=== PATIENT | male | born 1985 | race Caucasian/White ===

== ENCOUNTER 2019-10-14 15:25 | Emergency (ER) | payer MEDICAID ==
[2019-10-14] MEDS ORDERED: KETOROLAC 30 MG/ML VIAL ONE (18:20)
== END 2019-10-14 19:54 | disposition home or self-care (01) ==
LOC: MED 15:25
DX: S83.91XA Sprain of unspecified site of right knee, initial encounter (principal); I10 Essential (primary) hypertension; Z94.0 Kidney transplant status; X58.XXXA Exposure to other specified factors, initial encounter; Y92.89 Other specified places as the place of occurrence of the external cause; Y93.89 Activity, other specified; Y99.8 Other external cause status
CPT/HCPCS: 73562; 99283; J1885

== ENCOUNTER 2019-12-29 11:06 | Emergency (ER) | payer MEDICAID ==
[~2019-12-29] VITALS: Ht 175.3 cm; Wt 89.6 kg
[2019-12-29 11:18] VITALS: BP 145/104
--- NOTE | 2019-12-29 11:21 | NUR ---
AMBULATES TO BED 9
--- NOTE | 2019-12-29 11:29 | NUR ---
Xray at bedside
--- NOTE | 2019-12-29 11:30 | NUR ---
BIB SELF C/O LT SIDED CP 710 RADIATING THE LT ARM AND SOB SINCE LAST NIGHT, ANXIETY THIS MORNING. PATIENT STATES PAIN OF 7/10 AT THIS TIME; VSS; PATIENT POSITIONED FOR COMFORT; HOB ELEVATED; BEDRAILS UP X1; BED DOWN. ER MD MADE AWARE OF PT STATUS.
[2019-12-29 12:12] LABS: BASOPHILS % (AUTO) 0.7 % (0.0-2.0); EOSINOPHILS # (AUTO) 0.1 K/uL (0-0.4); LYMPHOCYTES # (AUTO) 1.2 K/uL (2.0-11.5); LYMPHOCYTES % (AUTO) 34.1 % (20.5-51.1); MEAN CORPUSCULAR HEMOGLOBIN 26 pg (27-31); MEAN CORPUSCULAR HGB CONC 33 g/dL (33-37); MEAN CORPUSCULAR VOLUME 78.9 fL (80-94); MONOCYTES # (AUTO) 0.3 K/uL (0.8-1.0); MONOCYTES % (AUTO) 8.3 % (1.7-9.3); NEUTROPHILS # (AUTO) 1.9 K/uL (1.8-7.7); NEUTROPHILS % (AUTO) 54.9 % (42.2-75.2); PLATELET COUNT (AUTO) 144 K/uL (140-450); RED BLOOD CELL COUNT(AUTO) 5.71 MIL/uL (4.20-6.10); RED CELL DISTRIBUTION WIDTH 13.5 % (11.6-13.7); WHITE BLOOD COUNT (AUTO) 3.4 K/uL (4.8-10.8)
[2019-12-29 12:27] LABS: ALBUMIN 3.3 g/dL (3.4-5.0); ANION GAP 15.7 (8-16); CARBON DIOXIDE 21.7 mmol/L (21-32); CREATININE 1.8 mg/dL (0.6-1.3); POTASSIUM 3.4 mmol/L (3.5-5.1); TOTAL BILIRUBIN 0.5 mg/dL (0.0-1.0)
--- NOTE | 2019-12-29 12:30 | NUR ---
PT IS RESTING IN THE BED W/ VSS.
--- NOTE | 2019-12-29 13:32 | NUR ---
PT STATES HAVING 4/10 PRESSURE-LIKE CP AT THIS TIME W/O ANY RADIATION. DENIES N/V.
[2019-12-29 14:10] VITALS: BP 146/87
--- NOTE | 2019-12-29 14:10 | NUR ---
Patient discharged with v/s stable. Written and verbal after care instructions given and explained REGARDING NONSPECIFIC CHEST PAIN. Patient alert, oriented and verbalized understanding of instructions. Ambulatory with steady gait. All questions addressed prior to discharge. ID band removed. Patient advised to follow up with PMD. Rx of ATARAX, NORCO given. Patient educated on indication of medication including possible reaction and side effects. Opportunity to ask questions provided and answered. PT INSTRUCTED TO NOT DRIVE AFTER TAKING NORCO
== END 2019-12-29 14:10 | disposition home or self-care (01) ==
LOC: MED 11:06
DX: R07.9 Chest pain, unspecified (principal); Z87.448 Personal history of other diseases of urinary system; Z88.6 Allergy status to analgesic agent
CPT/HCPCS: 36415; 71045; 80053; 84484; 85025; 93005; 99285; Q0092

== ENCOUNTER 2020-01-24 12:25 | Emergency (ER) | payer MEDICAID ==
[~2020-01-24] VITALS: Ht 175.3 cm; Wt 88.9 kg
[2020-01-24 12:39] VITALS: BP 151/103
--- NOTE | 2020-01-24 12:44 | NUR ---
Patient ambulated to bed 11. RN evaluating patient at bedside.
--- NOTE | 2020-01-24 12:52 | NUR ---
computer system technician at bedside.
[2020-01-24] MEDS ORDERED: MORPHINE SULFATE 4 MG/ML SYR IVP ONE (12:55)
--- NOTE | 2020-01-24 12:59 | NUR ---
US tech at bedside for exam.
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
[2020-01-24 13:31] LABS: BASOPHILS % (AUTO) 0.8 % (0.0-2.0); EOSINOPHILS # (AUTO) 0.2 K/uL (0-0.4); EOSINOPHILS % (AUTO) 4.3 % (0.0-4.0); HEMATOCRIT 44.2 % (36-52); HEMOGLOBIN 14.5 g/dL (12.0-18.0); LYMPHOCYTES # (AUTO) 0.7 K/uL (2.0-11.5); LYMPHOCYTES % (AUTO) 16.6 % (20.5-51.1); MEAN CORPUSCULAR HEMOGLOBIN 26 pg (27-31); MEAN CORPUSCULAR HGB CONC 33 g/dL (33-37); MEAN CORPUSCULAR VOLUME 80.5 fL (80-94); MONOCYTES # (AUTO) 0.5 K/uL (0.8-1.0); MONOCYTES % (AUTO) 10.9 % (1.7-9.3); NEUTROPHILS # (AUTO) 2.9 K/uL (1.8-7.7); NEUTROPHILS % (AUTO) 67.4 % (42.2-75.2); PLATELET COUNT (AUTO) 180 K/uL (140-450); RED BLOOD CELL COUNT(AUTO) 5.49 MIL/uL (4.20-6.10); RED CELL DISTRIBUTION WIDTH 13.9 % (11.6-13.7); WHITE BLOOD COUNT (AUTO) 4.3 K/uL (4.8-10.8)
--- NOTE | 2020-01-24 13:54 | NUR ---
Patient in bed laying comfortably. pain medication administered. no needs at this time. bed at lowest position, bed rails x2 and locked.
[2020-01-24] MEDS ORDERED: CEPHALEXIN 500 MG CAP PO ONE (14:00)
[2020-01-24] MEDS ORDERED: SULFAMETH/TRIMETH DS 800/160MG 1 TAB PO ONE (14:00)
[2020-01-24 14:19] VITALS: BP 135/93
[2020-01-24 14:20] LABS: ANION GAP 14.2 (8-16); CARBON DIOXIDE 22.6 mmol/L (21-32); CREATININE 1.9 mg/dL (0.6-1.3); POTASSIUM 3.8 mmol/L (3.5-5.1)
[2020-01-24 14:27] LABS: ALBUMIN 3.2 g/dL (3.4-5.0); TOTAL BILIRUBIN 0.6 mg/dL (0.0-1.0); URIC ACID 6.7 mg/dL (2.6-7.2)
== END 2020-01-24 12:52 | disposition home or self-care (01) ==
LOC: MED 12:25
DX: L03.114 Cellulitis of left upper limb (principal); Z91.09 Other allergy status, other than to drugs and biological substances
CPT/HCPCS: 36415; 73110; 80053; 84550; 85025; 93971; 96374; 99284; J2270; Q0092

== ENCOUNTER 2020-04-20 23:40 | Emergency (ER) | payer MEDICAID ==
[~2020-04-20] VITALS: Ht 170.2 cm; Wt 93.4 kg
[2020-04-20 23:50] VITALS: BP 162/110
--- NOTE | 2020-04-20 23:57 | NUR ---
PT AMBULATED TO BE 04 WITH STEADY GAIT.
[2020-04-21] MEDS ORDERED: MORPHINE SULFATE 2 MG/ML SYR IM ONE ×2 (00:10→01:25)
--- NOTE | 2020-04-21 00:28 | NUR ---
PT TAKEN TO CT VIA W/C
--- NOTE | 2020-04-21 01:20 | NUR ---
PT CONTIUNES TO COMPLAIN OF PAIN 08/18, MD FONTAINE AWARE
--- NOTE | 2020-04-21 01:28 | NUR ---
PT AMBULATED TO RESTROOM TO GIVE URINE SPECIMEN.
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
[2020-04-21 01:37] LABS: APPEARANCE,URINE CLEAR (CLEAR); BILIRUBIN,URINE NEGATIVE (NEGATIVE); BLOOD, URINE NEGATIVE (NEGATIVE); COLOR,URINE YELLOW (YELLOW); LEUKOCYTE ESTERASE ,URINE NEGATIVE (NEGATIVE); NITRITE, URINE NEGATIVE (NEGATIVE); PH,URINE 5.5 (5.0-9.0); UGLUCOSE NEGATIVE (NEGATIVE)
[2020-04-21 01:48] LABS: HYALINE CASTS, URINE 0-2 /LPF (None Seen); RBC,URINE 0-5 /HPF (0-5); WBC,URINE 0-5 /HPF (0-5)
--- NOTE | 2020-04-21 02:22 | NUR ---
Patient discharged with v/s stable. Written and verbal after care instructions given and explained. Patient alert, oriented and verbalized understanding of instructions. Ambulatory with steady gait. All questions addressed prior to discharge. ID band removed. Patient advised to follow up with PMD. Rx of NORCO, NARCAN given. Patient educated on indication of medication including possible reaction and side effects. Opportunity to ask questions provided and answered.
[2020-04-21 02:28] VITALS: BP 144/107
== END 2020-04-21 02:22 | disposition home or self-care (01) ==
LOC: MED 23:40
DX: S16.1XXA Strain of muscle, fascia and tendon at neck level, initial encounter (principal); I10 Essential (primary) hypertension; N28.9 Disorder of kidney and ureter, unspecified; Z88.6 Allergy status to analgesic agent; Z94.0 Kidney transplant status; V89.2XXA Person injured in unspecified motor-vehicle accident, traffic, initial encounter; Y93.89 Activity, other specified; Y92.89 Other specified places as the place of occurrence of the external cause; Y99.8 Other external cause status
CPT/HCPCS: 72040; 74176; 81001; 96372; 99285; J2270; 99284

== ENCOUNTER 2021-10-19 11:54 | Emergency (ER) | payer MEDICAID ==
[~2021-10-19] VITALS: Ht 172.7 cm; Wt 96.6 kg
[2021-10-19 12:03] VITALS: BP 159/104
--- NOTE | 2021-10-19 12:08 | NUR ---
PT TO ER BED 12, ER MD HIGHTOWER PT IN TRIAGE
[2021-10-19] MEDS ORDERED: ALLO100T21 PO (12:15)
[2021-10-19] MEDS ORDERED: TACR1CAP17 PO ×2 (12:15)
[2021-10-19] MEDS ORDERED: CEL250 PO (12:15)
--- NOTE | 2021-10-19 12:20 | NUR ---
Blood sample and cultures handed to CPT Corinne at ER bedside
[2021-10-19] MEDS ORDERED: MORPHINE SULFATE 4 MG/ML SYR IM ONE (12:40)
--- NOTE | 2021-10-19 12:40 | NUR ---
SPECIMEN FROM R KNEE, COLLECTED DURING PROCEDURE, GIVEN TO PAVER LAYER
[2021-10-19] MEDS ORDERED: LIDOCAINE 2% 1000 MG/50 ML VIAL INJ ONE (12:45)
[2021-10-19 12:59] LABS: BASOPHILS % (AUTO) 0.4 % (0.0-2.0); EOSINOPHILS # (AUTO) 0.1 K/uL (0-0.4); EOSINOPHILS % (AUTO) 1.7 % (0.0-4.0); HEMATOCRIT 40.6 % (36-52); HEMOGLOBIN 13.8 g/dL (12.0-18.0); LYMPHOCYTES # (AUTO) 1.1 K/uL (2.0-11.5); LYMPHOCYTES % (AUTO) 25.2 % (20.5-51.1); MEAN CORPUSCULAR HEMOGLOBIN 27 pg (27-31); MEAN CORPUSCULAR HGB CONC 34 g/dL (33-37); MEAN CORPUSCULAR VOLUME 78.3 fL (80-94); MONOCYTES # (AUTO) 0.4 K/uL (0.8-1.0); MONOCYTES % (AUTO) 8.9 % (1.7-9.3); NEUTROPHILS # (AUTO) 2.8 K/uL (1.8-7.7); NEUTROPHILS % (AUTO) 63.8 % (42.2-75.2); PLATELET COUNT (AUTO) 206 K/uL (140-450); RED BLOOD CELL COUNT(AUTO) 5.18 MIL/uL (4.20-6.10); RED CELL DISTRIBUTION WIDTH 14.7 % (11.6-13.7); WHITE BLOOD COUNT (AUTO) 4.3 K/uL (4.8-10.8)
[2021-10-19 13:27] LABS: ALBUMIN 3.4 g/dL (3.4-5.0); ANION GAP 17.8 (8-16); CARBON DIOXIDE 21.9 mmol/L (21-32); CREATININE 1.9 mg/dL (0.6-1.3); POTASSIUM 3.7 mmol/L (3.5-5.1); TOTAL BILIRUBIN 0.4 mg/dL (0.0-1.0)
--- NOTE | 2021-10-19 13:30 | NUR ---
GAVE REPORT TO MARCELLO PURI AND MARCELLO CH. TRANSFER OF CARE AT THIS TIME.
[2021-10-19] MEDS ORDERED: PRED20TA5 PO (13:46)
[2021-10-19] MEDS ORDERED: ACET-8386 PO (13:46)
[2021-10-19] MEDS ORDERED: NACL 0.9% 1,000 ML IV ONE (13:55)
[2021-10-19] MEDS ORDERED: MORPHINE SULFATE 4 MG/ML SYR IVP ONE (14:25)
[2021-10-19 15:45] LABS: APPEARANCE,SPUN,BODY FLUID HAZY (CLEAR); APPEARANCE,UNSPUN,BODY FLUID CLOUDY (CLEAR); COLOR,BODY FLUID YELLOW (LT YELLOW); RBC, BODY FLUID 432 /cu. mm.; SPECIMENTYPE,BODY FLUID SYNOVIAL; TOTAL VOLUME,BODY FLUID 30 mL; WBC, BODY FLUID 414 /cu. mm.
[2021-10-19 15:46] LABS: POLYNUCLEAR, BODY FLUID 55 %
[2021-10-19 15:52] LABS: GLUCOSE,BODY FLUID 4 mg/dL
[2021-10-19] MEDS ORDERED: HYDROcodone/APAP 7.5/325 MG 1 TAB PO ONE (16:00)
[2021-10-19 16:30] VITALS: BP 147/96
--- NOTE | 2021-10-19 16:50 | NUR ---
Patient discharged with v/s stable. Written and verbal after care instructions given and explained. Patient alert, oriented and verbalized understanding of instructions. Ambulatory with steady gait. All questions addressed prior to discharge. ID band removed. Patient advised to follow up with PMD. Rx of Batchelor, Prednisone given. Patient educated on indication of medication including possible reaction and side effects. Opportunity to ask questions provided and answered.
[2021-10-22 06:07] LABS: TACROLIMUS 2.9 ng/mL (2.0-20.0)
== END 2021-10-19 16:50 | disposition home or self-care (01) ==
LOC: MED 11:54
DX: M10.061 Idiopathic gout, right knee (principal); M25.461 Effusion, right knee; I10 Essential (primary) hypertension; Z88.6 Allergy status to analgesic agent; Z79.899 Other long term (current) drug therapy; Z98.890 Other specified postprocedural states
CPT/HCPCS: 36415; 80053; 80197; 82945; 83605; 84157; 84550; 85025; 85651; 86140; 87040; 87070; 87205; 89051; 96361; 96374; 99283; J2001; J2270; J7030

== ENCOUNTER 2022-01-07 08:36 | Emergency (ER) | payer MEDICAID ==
[~2022-01-07] VITALS: Ht 175.3 cm; Wt 98.4 kg
[~2022-01-07 08:36] MED LIST: ACET-8386 PO; ALLO100T21 PO; CEL250 PO; PRED20TA5 PO; TACR1CAP17 PO
[2022-01-07 08:45] VITALS: BP 144/94
--- NOTE | 2022-01-07 08:45 | NUR ---
36 y/o Male BIB self for c/o 08/18 sharp right knee pain x yesterday. Right knee appears swollen and tender to touch. Pt states he has a PmHx of gout and has had previous visits for same pain. Pt ambulates with an impaired steady gait. PmHx: Gout, HTN, Kidney disease(2011 kidney transplant) Allergies: Ibuprofen Home meds: Lisinopril, anti rejection(unknown)
--- NOTE | 2022-01-07 08:52 | NUR ---
Pt ambulated to room 12 at this time
[2022-01-07] MEDS ORDERED: ACET-8386 PO (09:09)
[2022-01-07 09:16] VITALS: BP 144/94
--- NOTE | 2022-01-07 09:16 | NUR ---
Patient discharged with v/s stable. Written and verbal after care instructions given and explained with teachback . Patient verbalized understanding. Ambulatory with steady gait. All questions addressed prior to discharge. Advised to follow up with PMD.
== END 2022-01-07 09:16 | disposition home or self-care (01) ==
LOC: MED 08:36
DX: M10.9 Gout, unspecified (principal); I10 Essential (primary) hypertension; Z88.6 Allergy status to analgesic agent; Z79.899 Other long term (current) drug therapy; Z87.448 Personal history of other diseases of urinary system
CPT/HCPCS: 99283

== ENCOUNTER 2022-07-15 11:56 | Emergency (ER) | payer MEDICAID ==
[~2022-07-15] VITALS: Ht 175.3 cm; Wt 103.9 kg
[2022-07-15 12:23] VITALS: BP 128/85
--- NOTE | 2022-07-15 13:17 | NUR ---
PT AMBULATED TO BED 10.
--- NOTE | 2022-07-15 13:20 | NUR ---
36 Y/O Male presents with non-radiating pressure like CP x 3 days. +N/V, denies any blood at this time. Abd soft and non-tender. AOX4, able to make needs known. Resp even and unlabored. PmHx: kidney transplant 2010 Allergies : Ibuprofen
[2022-07-15 13:22] LABS: BASOPHILS % (AUTO) 0.4 % (0.0-2.0); EOSINOPHILS % (AUTO) 0.5 % (0.0-4.0); HEMATOCRIT 38.5 % (36-52); LYMPHOCYTES # (AUTO) 1.1 K/uL (2.0-11.5); LYMPHOCYTES % (AUTO) 18.1 % (20.5-51.1); MEAN CORPUSCULAR HEMOGLOBIN 28 pg (27-31); MEAN CORPUSCULAR HGB CONC 34 g/dL (33-37); MEAN CORPUSCULAR VOLUME 82.2 fL (80-94); MONOCYTES # (AUTO) 0.5 K/uL (0.8-1.0); MONOCYTES % (AUTO) 8.8 % (1.7-9.3); NEUTROPHILS # (AUTO) 4.3 K/uL (1.8-7.7); NEUTROPHILS % (AUTO) 72.2 % (42.2-75.2); PLATELET COUNT (AUTO) 164 K/uL (140-450); RED BLOOD CELL COUNT(AUTO) 4.68 MIL/uL (4.20-6.10); RED CELL DISTRIBUTION WIDTH 14.2 % (11.6-13.7); WHITE BLOOD COUNT (AUTO) 5.9 K/uL (4.8-10.8)
[2022-07-15 13:39] LABS: ALBUMIN 3.2 g/dL (3.4-5.0); ANION GAP 16.1 (8-16); CARBON DIOXIDE 21.8 mmol/L (21-32); CREATININE 2.3 mg/dL (0.6-1.3); POTASSIUM 3.9 mmol/L (3.5-5.1); TOTAL BILIRUBIN 0.8 mg/dL (0.0-1.0)
--- NOTE | 2022-07-15 14:10 | NUR ---
Patient appears to be resting comfortably in bed. Vital Signs within normal limits. Respirations even and unlabored.
[2022-07-15] MEDS ORDERED: ASPIRIN 325 MG TAB PO ONE (14:25)
[2022-07-15] MEDS ORDERED: MORPHINE SULFATE 4 MG/ML SYR IVP ONE ×2 (15:45→16:55)
--- NOTE | 2022-07-15 15:48 | NUR ---
CHANDRA SENT TO LAB
[2022-07-15] MEDS ORDERED: HEPARIN PER PHARMACY MC ONE (16:00)
[2022-07-15] MEDS ORDERED: hePARIN / DEXT 5% PREMIX 250 ML IV ONE (16:00)
--- NOTE | 2022-07-15 16:10 | NUR ---
Spoke to Dr Mclain with order to hold administration of Heparin drip at this time.
[2022-07-15 16:49] VITALS: BP 139/87
[2022-07-15] MEDS ORDERED: MORPHINE SULFATE 4 MG/ML SYR ONE (16:56)
--- NOTE | 2022-07-15 17:03 | NUR ---
Patient to be transferred to [facility]. Is being transferred due to higher level of care. Receiving facility has accepting physician and available space. ER physician has signed transfer form. Patient or responsible green party has agreed to transfer and signed form. Patient belongings inventoried and will be sent with patient. Copy of nursing notes, lab reports, EKG, Physicians Orders and X-rays to be sent with patient. Report called to Cal RIVERO at receiving facility. [facility] ambulance service taken pt in stable condition, no acute distress at this time.
== END 2022-07-15 17:03 | disposition short-term general hospital (02) ==
LOC: MED 11:56
DX: I21.4 Non-ST elevation (NSTEMI) myocardial infarction (principal); Z20.822 Contact with and (suspected) exposure to COVID-19; R77.8 Other specified abnormalities of plasma proteins; I10 Essential (primary) hypertension; Z79.899 Other long term (current) drug therapy; Z88.6 Allergy status to analgesic agent; Z98.890 Other specified postprocedural states
CPT/HCPCS: 36415; 71045; 80053; 83880; 84484; 85025; 85730; 87426; 93005; 96374; 96375; 96376; 99291; J1644; J2270

== ENCOUNTER 2022-09-27 11:45 | Emergency (ER) | payer MEDICAID ==
[~2022-09-27] VITALS: Ht 175.3 cm; Wt 103.4 kg
[2022-09-27 12:08] VITALS: BP 125/81
[2022-09-27] MEDS ORDERED: ACETAMINOPHEN EXTRA STRENGTH 500 MG TAB PO ONE (12:15)
[2022-09-27] MEDS ORDERED: ACETAMINOPHEN EXTRA STRENGTH 500 MG TAB ONE (12:16)
[2022-09-27] MEDS ORDERED: OSEL30CA1 PO (13:24)
[2022-09-27] MEDS ORDERED: ACET-10509 PO (13:25)
--- NOTE | 2022-09-27 13:50 | NUR ---
Patient discharged with v/s stable. Written and verbal after care instructions ABOUT INFLUENZA given and explained. Patient alert, oriented and verbalized understanding of instructions. Ambulatory with steady gait. All questions addressed prior to discharge. ID band removed. Patient advised to follow up with PMD. Rx of TYLENOL EXTRA STRENGTH AND TAMIFLU given. Patient educated on indication of medication including possible reaction and side effects. Opportunity to ask questions provided and answered.
== END 2022-09-27 13:50 | disposition home or self-care (01) ==
LOC: MED 11:45
DX: J10.1 Influenza due to other identified influenza virus with other respiratory manifestations (principal); I10 Essential (primary) hypertension; Z79.899 Other long term (current) drug therapy; Z98.890 Other specified postprocedural states; Z88.6 Allergy status to analgesic agent
CPT/HCPCS: 99283

== ENCOUNTER 2022-12-25 00:38 | Emergency (ER) | payer MEDICAID ==
[~2022-12-25] VITALS: Ht 175.3 cm; Wt 109.3 kg
[~2022-12-25 00:38] MED LIST changes: +ACET-10509 PO; -ACET-8386 PO; +ACET-8905 PO; +OSEL30CA1 PO
[2022-12-25 00:45] VITALS: BP 150/104
[2022-12-25] MEDS ORDERED: ASPIRIN 325 MG TAB PO ONE (00:50)
--- NOTE | 2022-12-25 00:55 | NUR ---
Pt came is with chest pain pressure 10/10, neausea and vomiting, SOB. Numbness and tingling. Hx: HTN Sx Hx: Kidney transplant, [place]
--- NOTE | 2022-12-25 00:56 | NUR ---
awake and alert oriented x4. Pt is able to answer questions.
[2022-12-25 01:05] LABS: BASOPHILS % (AUTO) 0.2 % (0.0-2.0); EOSINOPHILS % (AUTO) 0.1 % (0.0-4.0); HEMATOCRIT 41.4 % (36-52); HEMOGLOBIN 13.9 g/dL (12.0-18.0); LYMPHOCYTES # (AUTO) 0.6 K/uL (2.0-11.5); LYMPHOCYTES % (AUTO) 8.6 % (20.5-51.1); MEAN CORPUSCULAR HEMOGLOBIN 27 pg (27-31); MEAN CORPUSCULAR HGB CONC 34 g/dL (33-37); MEAN CORPUSCULAR VOLUME 80.3 fL (80-94); MONOCYTES # (AUTO) 0.1 K/uL (0.8-1.0); MONOCYTES % (AUTO) 1.5 % (1.7-9.3); NEUTROPHILS # (AUTO) 6.6 K/uL (1.8-7.7); NEUTROPHILS % (AUTO) 89.6 % (42.2-75.2); PLATELET COUNT (AUTO) 212 K/uL (140-450); RED BLOOD CELL COUNT(AUTO) 5.16 MIL/uL (4.20-6.10); RED CELL DISTRIBUTION WIDTH 14.9 % (11.6-13.7); WHITE BLOOD COUNT (AUTO) 7.4 K/uL (4.8-10.8)
[2022-12-25 01:45] LABS: CHLORIDE 101 mmol/L (98-107); POTASSIUM 4.5 mmol/L (3.5-5.1); SODIUM SERUM 135 mmol/L (136-145)
[2022-12-25 01:46] LABS: CREATININE 2.2 mg/dL (0.6-1.3); GFR ARICAN-AMERICAN 44 mL/min (>90); GLUCOSE 257 mg/dL (74-106); UREA NITROGEN, BLOOD 18 mg/dL (7-18)
[2022-12-25 01:47] LABS: ALBUMIN 4.2 g/dL (3.4-5.0)
[2022-12-25 01:52] LABS: BARBITURATE, URINE NEGATIVE ng/ml (NEG <=200); BENZODIAZEPINE, URINE NEGATIVE ng/mL (NEG <=200)
[2022-12-25 01:53] LABS: CANNABINOID, URINE NEGATIVE ng/mL (NEG <=50); COCAINE, URINE NEGATIVE ng/mL (NEG <=300); OPIATE, URINE NEGATIVE ng/mL (NEG <=2000); PHENCYCLIDINE SCREEN,URINE NEGATIVE ng/mL (NEG <=25)
[2022-12-25 01:59] LABS: ASPARTATE AMINOTRANSFERASE 11 U/L (15-37); CARBON DIOXIDE 19.5 mmol/L (21-32); LIPASE 118 U/L (73-393); TOTAL BILIRUBIN 0.5 mg/dL (0.0-1.0)
[2022-12-25] MEDS ORDERED: ASPI-1822 PO (02:21)
[2022-12-25] MEDS ORDERED: MYCO500T PO (02:21)
[2022-12-25] MEDS ORDERED: PRED5TAB7 PO (02:21)
[2022-12-25] MEDS ORDERED: METO25TE2 PO (02:21)
[2022-12-25] MEDS ORDERED: ATOR40TA PO (02:21)
[2022-12-25] MEDS ORDERED: CLOP75TA55 PO (02:21)
[2022-12-25] MEDS ORDERED: diazePAM 5 MG TAB PO ONE (02:40)
[2022-12-25 05:35] VITALS: BP 150/105
--- NOTE | 2022-12-25 05:38 | NUR ---
Patient does not wish to proceed with medical care recommended by Dr. Dunn. Patient given information related to possible complications, up to and including , which could occur as a result of leaving hospital at this time. Patient verbalizes understanding of risks involved leaving against medical advice. Patient has signed AMA form. Pt left with his belongings.
[2022-12-26] MEDS ORDERED: TACR1CAP10 PO (17:18)
[2022-12-26] MEDS ORDERED: PRED5TAB8 PO (17:18)
[2022-12-26] MEDS ORDERED: ATOR40TA40 PO (17:18)
[2022-12-26] MEDS ORDERED: ASPI-1856 PO (17:18)
== END 2022-12-25 05:25 | disposition left against medical advice (07) ==
LOC: MED 00:38
DX: R94.31 Abnormal electrocardiogram [ECG] [EKG] (principal); I10 Essential (primary) hypertension; N18.9 Chronic kidney disease, unspecified; Z88.5 Allergy status to narcotic agent; Z79.899 Other long term (current) drug therapy
CPT/HCPCS: 36415; 71045; 80053; 80305; 83690; 84484; 85025; 93005; 99285; Q0092

== ENCOUNTER 2022-12-26 13:41 | Inpatient (IN) | payer MEDICAID ==
[~2022-12-26] VITALS: Ht 175.3 cm; Wt 107.0 kg
[~2022-12-26 13:41] MED LIST changes: -ACET-10509 PO; -ACET-8905 PO; -ALLO100T21 PO; +ASPI-1822 PO; +ATOR40TA PO; -CEL250 PO; +CLOP75TA55 PO; +METO25TE2 PO; +MYCO500T PO; -OSEL30CA1 PO; -PRED20TA5 PO; +PRED5TAB7 PO
[2022-12-26 13:47] VITALS: BP 127/83
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
[2022-12-26] MEDS ORDERED: ASPIRIN 325 MG TAB PO ONE (14:25)
[2022-12-26 15:34] LABS: BASOPHILS % (AUTO) 0.5 % (0.0-2.0); EOSINOPHILS % (AUTO) 0.5 % (0.0-4.0); HEMATOCRIT 41.6 % (36-52); HEMOGLOBIN 13.8 g/dL (12.0-18.0); LYMPHOCYTES # (AUTO) 2.2 K/uL (2.0-11.5); LYMPHOCYTES % (AUTO) 35.1 % (20.5-51.1); MEAN CORPUSCULAR HEMOGLOBIN 27 pg (27-31); MEAN CORPUSCULAR HGB CONC 33 g/dL (33-37); MEAN CORPUSCULAR VOLUME 81.5 fL (80-94); MONOCYTES # (AUTO) 0.4 K/uL (0.8-1.0); NEUTROPHILS # (AUTO) 3.5 K/uL (1.8-7.7); NEUTROPHILS % (AUTO) 56.9 % (42.2-75.2); PLATELET COUNT (AUTO) 195 K/uL (140-450); RED CELL DISTRIBUTION WIDTH 15.1 % (11.6-13.7); WHITE BLOOD COUNT (AUTO) 6.2 K/uL (4.8-10.8)
[2022-12-26 16:21] LABS: PROTHROMBIN TIME 10.2 secs (10.8-13.4)
--- NOTE | 2022-12-26 17:11 | NUR ---
PT AMB TO BED 8
[2022-12-26] MEDS ORDERED: PRED5TAB8 PO (17:18)
[2022-12-26] MEDS ORDERED: TACR1CAP10 PO (17:18)
[2022-12-26] MEDS ORDERED: ASPI-1856 PO (17:18)
[2022-12-26] MEDS ORDERED: ATOR40TA40 PO (17:18)
[2022-12-26 17:51] VITALS: BP 132/87
[2022-12-26 17:55] LABS: ANION GAP 17.9 (8-16); CARBON DIOXIDE 21.6 mmol/L (21-32); CREATININE 2.3 mg/dL (0.6-1.3); POTASSIUM 3.5 mmol/L (3.5-5.1)
[2022-12-26 18:08] LABS: ALBUMIN 3.7 g/dL (3.4-5.0); TOTAL BILIRUBIN 0.3 mg/dL (0.0-1.0)
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
--- NOTE | 2022-12-26 18:38 | NUR ---
LAB AT BEDSIDE
--- NOTE | 2022-12-26 19:21 | NUR ---
REPORT GIVEN TO CARLOS SAN. TRANSFER OF CARE AT THIS TIME
--- NOTE | 2022-12-26 20:30 | NUR ---
pt requested to leave AMA, information was explained and provided to pt and pt decided to AMA afterwards. pt stated "i feel fine now i have no pain."
--- NOTE | 2022-12-26 20:40 | NUR ---
science interpreter used and ID number [id number].
--- NOTE | 2022-12-26 21:27 | NUR ---
Patient does not wish to proceed with medical care recommended by Dr. Wallis. Patient given information related to possible complications, up to and including , which could occur as a result of leaving hospital at this time. Patient verbalizes understanding of risks involved leaving against medical advice. Patient has signed AMA form.
== END 2022-12-26 21:27 | disposition left against medical advice (07) | DRG 190 ==
LOC: MED 13:41 → MTU 18:30
DX: I21.4 Non-ST elevation (NSTEMI) myocardial infarction (principal); E78.00 Pure hypercholesterolemia, unspecified; Z20.822 Contact with and (suspected) exposure to COVID-19; I10 Essential (primary) hypertension; Z88.6 Allergy status to analgesic agent; Z94.0 Kidney transplant status; N28.9 Disorder of kidney and ureter, unspecified
CPT/HCPCS: 36415; 71045; 80053; 83880; 84484; 85025; 85610; 85730; 99285

== ENCOUNTER 2023-03-10 19:40 | Emergency (ER) | payer MEDICAID ==
[~2023-03-10] VITALS: Ht 175.3 cm; Wt 108.4 kg
[~2023-03-10 19:40] MED LIST changes: -ASPI-1822 PO; +ASPI-1856 PO; -ATOR40TA PO; +ATOR40TA40 PO; -PRED5TAB7 PO; +PRED5TAB8 PO; +TACR1CAP10 PO; -TACR1CAP17 PO
[2023-03-10 20:27] VITALS: BP 149/112
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
[2023-03-10] MEDS ORDERED: LIDOCAINE 1% 500 MG/ 50 ML VIAL INJ ONE (22:25)
[2023-03-10] MEDS ORDERED: LIDOCAINE MPF 1% 5 ML ONE (22:28)
--- NOTE | 2023-03-10 23:00 | NUR ---
DR MALONE FRO THE MEDS AND PROCEDURE WAS PERFOMED
[2023-03-10] MEDS ORDERED: ACET-10509 PO (23:22)
[2023-03-10 23:40] VITALS: BP 140/98
--- NOTE | 2023-03-10 23:40 | NUR ---
Patient discharged with v/s stable. Written and verbal after care instructions given and explained. Patient alert, oriented and verbalized understanding of instructions. Ambulatory with steady gait. All questions addressed prior to discharge. ID band removed. Patient advised to follow up with PMD. Rx of ACETAMINOPHEN given. Patient educated on indication of medication including possible reaction and side effects. Opportunity to ask questions provided and answered. PT LEFT WITH HIS BELONGINGS.
== END 2023-03-10 23:40 | disposition home or self-care (01) ==
LOC: MED 19:40
DX: S61.211A Laceration without foreign body of left index finger without damage to nail, initial encounter (principal); R03.0 Elevated blood-pressure reading, without diagnosis of hypertension; I25.10 Atherosclerotic heart disease of native coronary artery without angina pectoris; I10 Essential (primary) hypertension; N18.9 Chronic kidney disease, unspecified; Z79.899 Other long term (current) drug therapy; W26.0XXA Contact with knife, initial encounter; Y93.89 Activity, other specified; Y92.89 Other specified places as the place of occurrence of the external cause; Y99.8 Other external cause status
CPT/HCPCS: 12002; 90471; 90715; 99283; J2001

== ENCOUNTER 2023-06-29 14:15 | Emergency (ER) | payer MEDICAID, OTHER ==
[~2023-06-29] VITALS: Ht 175.3 cm; Wt 90.7 kg
[~2023-06-29 14:15] MED LIST changes: +ACET-10509 PO
[2023-06-29 14:32] VITALS: BP 144/112; PULSE 98; RESP 17; TEMP 97.4; O2SAT 98
[2023-06-29 15:03] LABS: BASOPHILS % (AUTO) 0.5 % (0.0-2.0); EOSINOPHILS # (AUTO) 0.1 K/uL (0-0.4); HEMATOCRIT 41.4 % (36-52); HEMOGLOBIN 14.1 g/dL (12.0-18.0); LYMPHOCYTES # (AUTO) 1.2 K/uL (2.0-11.5); LYMPHOCYTES % (AUTO) 20.7 % (20.5-51.1); MEAN CORPUSCULAR HEMOGLOBIN 28 pg (27-31); MEAN CORPUSCULAR HGB CONC 34 g/dL (33-37); MEAN CORPUSCULAR VOLUME 81.3 fL (80-94); MONOCYTES # (AUTO) 0.6 K/uL (0.8-1.0); MONOCYTES % (AUTO) 9.9 % (1.7-9.3); NEUTROPHILS # (AUTO) 3.8 K/uL (1.8-7.7); NEUTROPHILS % (AUTO) 67.9 % (42.2-75.2); PLATELET COUNT (AUTO) 174 K/uL (140-450); RED BLOOD CELL COUNT(AUTO) 5.09 MIL/uL (4.20-6.10); RED CELL DISTRIBUTION WIDTH 14.3 % (11.6-13.7); WHITE BLOOD COUNT (AUTO) 5.6 K/uL (4.8-10.8)
[2023-06-29 15:24] LABS: ALBUMIN 3.3 g/dL (3.4-5.0); ANION GAP 14.6 (8-16); CALCIUM 8.4 mg/dL (8.5-10.1); CARBON DIOXIDE 22.8 mmol/L (21-32); CREATININE 2.3 mg/dL (0.6-1.3); POTASSIUM 3.4 mmol/L (3.5-5.1); TOTAL BILIRUBIN 0.7 mg/dL (0.0-1.0); TOTAL PROTEIN, SERUM 7.4 g/dL (6.4-8.2)
[2023-06-29] MEDS ORDERED: MORPHINE SULFATE 4 MG/ML SYR IM ONE (19:20)
[2023-06-29] MEDS ORDERED: HYDR-5191 PO (19:28)
[2023-06-29 20:05] VITALS: BP 153/111; PULSE 97; RESP 18; O2SAT 100
== END 2023-06-29 20:05 | disposition home or self-care (01) ==
LOC: MED 14:15
DX: R07.89 Other chest pain (principal); I10 Essential (primary) hypertension; I25.2 Old myocardial infarction; Z88.6 Allergy status to analgesic agent; Z79.899 Other long term (current) drug therapy; Z98.890 Other specified postprocedural states
CPT/HCPCS: 36415; 71045; 80053; 83880; 84484; 85025; 93005; 96372; 99285; J2270